=== PATIENT | female | born 1960 | race Caucasian/White ===

== ENCOUNTER 2018-04-01 13:31 | Emergency (ER) | payer OTHER ==
--- NOTE | 2018-04-01 14:52 | EDM.PDOC ---
ED HPI GENERAL MEDICAL PROBLEM - General Chief Complaint: Neurological Problem Stated Complaint: LIPS ARE NUMB Time Seen by Provider: 04/01/18 13:58 Source of Information: Reports: Patient, RN Notes Reviewed - History of Present Illness INITIAL COMMENTS - FREE TEXT/NARRATIVE: 57-year-old female comes in with some numbness primarily of her left mouth since yesterday morning and also some slight left facial droop, also "slowness of her left eye to close when she blinks compared to the right. Symptoms do seem somewhat worse today than yesterday. She is not been ill in any way. No numbness weakness or clumsiness of her upper or lower extremities. She denies headache or any visual symptomatology. No speech difficulty. No history of diabetes hypertension or coronary artery disease. - Related Data Allergies Allergy/AdvReac Type Severity Reaction Status Date / Time erythromycin base Allergy Vomiting Verified 04/01/18 13:42 Penicillins Allergy Cannot Verified 04/01/18 13:42 Remember Home Meds: Home Meds valACYclovir [Valtrex] 1,000 mg PO TID #30 tablet 04/01/18 [Rx] Past Medical History [employer] History: Reports: Social & Family History - Tobacco Use Smoking Status *Q: Never Smoker Second Hand Smoke Exposure: No - Caffeine Use Caffeine Use: Reports: Coffee - Recreational Drug Use Recreational Drug Use: No ED ROS GENERAL - Review of Systems Review Of Systems: See Below HEENT: Denies: Dental Pain, Sinus Problem, Throat Pain Respiratory: Denies: Shortness of Breath Cardiovascular: Denies: Chest Pain GI/Abdominal: Denies: Abdominal Pain, Nausea, Vomiting Musculoskeletal: Denies: Neck Pain, Shoulder Pain, Arm Pain Skin: Denies: Rash Neurological: Reports: Numbness (Left mouth and left face, mild) ED EXAM, NEURO - Physical Exam Exam: See Below General Appearance: Alert, No Apparent Distress Eye Exam: Bilateral Eye: PERRL, Other (Extraocular motion is conjugate in both directions) Nose: Normal Inspection Throat/Mouth: Normal Inspection, Normal Oropharynx Head Exam: Atraumatic, Other. No: Facial Swelling, Facial Tenderness Neck: Supple (No mass palpable), Full Range of Motion. No: Lymphadenopathy (L) , Lymphadenopathy (R) Respiratory/Chest: No Respiratory Distress, Lungs Clear, Normal Breath Sounds Cardiovascular: Regular Rate, Rhythm Neurological: Alert, Oriented x 3, Other (Finger to nose testing normal bilaterally, speech is normal, very slight left facial droop very slight left lid leg compared to the right but able to close her eye without difficulty.) Extremities: Normal Inspection, Normal Range of Motion Skin Exam: Warm, Dry, Normal Color Course - Vital Signs Last Recorded V/S: Last Vital Signs Temp 98.4 F 04/01/18 13:37 Pulse 89 04/01/18 13:37 Resp 13 04/01/18 13:37 BP 121/75 04/01/18 13:37 Pulse Ox 100 04/01/18 13:37 Departure - Departure Time of Disposition: 14:51 Disposition: Home, Self-Care 01 Condition: Fair Clinical Impression: Hallman's palsy - Discharge Information Prescriptions: valACYclovir [Valtrex] 1,000 mg PO TID #30 tablet Instructions: Hallman Palsy, Adult Referrals: Sindy Puga PA-C [Primary Care Provider] - Forms: ED Department Discharge Additional Instructions: Prednisone 40 mg today once he get a prescription filled and then every morning for the next 4 days, then reduce to 20 mg daily for the following 4 days., Acyclovir 1000 mg 3 times daily for 10 days or until gone. Follow-up with a medical provider either at [facility] or at our [facility] medical clinic in about 4-5 days for recheck. Just calling for appointment this afternoon. If you choose to see one of our [facility] providers the number to call us [phone]. Return to ED as needed.
== END 2018-04-01 15:08 | disposition home or self-care (01) ==
LOC: JD.ED 13:31
DX: G51.0 Bell's palsy (principal); Z88.1 Allergy status to other antibiotic agents; Z88.0 Allergy status to penicillin
CPT/HCPCS: 99283; 99284